=== PATIENT | female | born 1960 | race Caucasian/White ===

== ENCOUNTER 2023-03-18 05:35 | Day surgery (SDC) | payer BC ==
--- NOTE | 2023-03-17 18:08 | HP ---
HISTORY AND PHYSICAL DATE OF SURGERY: 03/18/2023. HISTORY OF PRESENT ILLNESS: Elaine Mars is a 62-year-old patient, seen with progressive right shoulder pain. We discussed options for treatment. She elected to proceed with right shoulder arthroscopy. Consent regarding procedure was obtained. PAST MEDICAL HISTORY: Gastroesophageal reflux disease, cardiovascular disease, lgx-kasdpht-lypopghar diabetes. PAST SURGICAL HISTORY: Implanted defibrillator. DAILY MEDICATIONS: 1. Atorvastatin. 2. Carvedilol. 3. Metformin. 4. Omeprazole. 5. Vitamins. ALLERGIES: Adhesive tape. SOCIAL HISTORY: She denies tobacco use. PHYSICAL EVALUATION OF THE RIGHT SHOULDER: Flexion is 120 degrees. Abduction is 100 degrees. External rotation is 30 degrees with pain and weakness. Tenderness along the anterolateral acromion and rotator cuff insertion site. Impingement is positive at 80 degrees. Cross-body adduction sign is positive. Drop-arm sign is positive. Distal neurovascular exam is intact. IMAGING STUDIES: Radiographs of the right shoulder revealed a type 2 acromion, evidence for acromioclavicular joint osteoarthritis, and cystic changes of the tuberosity. IMPRESSION: 1. Right shoulder impingement with rotator cuff tear. 2. Right shoulder acromioclavicular joint osteoarthritis. 3. Hypertension. 4. Hyperlipidemia. 5. Nha-bdybcvz-cbzbsmtqb diabetes. PLAN: Right shoulder arthroscopy with subacromial decompression, arthroscopic rotator cuff repair, Edmond procedure and debridement. MMODL / IJN: [id number] /
[~2023-03-18 05:35] MED LIST: DEXAMETHASONE SOD PHOSPHATE 4 MG/ML 1 ML VIAL IV ONE; LACTATED RINGERS 1,000 ML IV SCH; LIDOCAINE 1% (10MG/ML) FOR IV START INTRADERMA PRN; ONDANSETRON 4 MG/2 ML VIAL IVP ONE
[2023-03-18] MEDS ORDERED: ONDANSETRON 4 MG/2 ML VIAL ONE (06:10)
[2023-03-18 06:27] LABS: Glucose,Whole Blood 157 mg/dL (70-110)
[2023-03-18] MEDS ORDERED: LACTATED RINGERS 1,000 ML IV ONE ×3 (06:45→09:43)
[2023-03-18] MEDS ORDERED: HYDROmorphone 0.5 MG/0.5 ML SYRINGE IVP PRN (07:00)
[2023-03-18] MEDS ORDERED: fentaNYL (PF) 50 MCG/ML 2 ML AMP IV PRN (07:00)
[2023-03-18] MEDS ORDERED: MIDAZOLAM 2 MG/2 ML VIAL IV PRN (07:00)
[2023-03-18 07:01] LABS: African American GFR (CKD) >90 (>60 ml/min/1.73 sqM); Anion Gap 12 mmol/L; Blood Urea Nitrogen 22 mg/dL (7-17); Calcium 9.9 mg/dL (8.4-10.2); Carbon Dioxide 21 mmol/L (22-30); Chloride 105 mmol/L (98-107); Glucose 164 mg/dL (74-99); Non-African American GFR(CKD) 89 (>60 ml/min/1.73 sqM); Sodium 138 mmol/L (137-145)
[2023-03-18 07:03] LABS: Potassium 4.7 mmol/L (3.5-5.1)
[2023-03-18] MEDS ORDERED: LIDOCAINE 1% INJ 10MG/ML (20 ML MDV) ONE (07:24)
[2023-03-18] MEDS ORDERED: PHENYLEPHRINE-0.9% NACL SYG 1,000 MCG/10 ML SYRINGE ONE (07:24)
[2023-03-18] MEDS ORDERED: SUCCINYLCHOLINE CHLORIDE 200 MG/10 ML VIAL IV ONE (07:24)
[2023-03-18] MEDS ORDERED: NEOSTIGMINE 1 MG/ML 10 ML VIAL ONE (07:24)
[2023-03-18] MEDS ORDERED: ROCURONIUM 10 MG/ML (5 ML VIAL) IV ONE (07:24)
[2023-03-18] MEDS ORDERED: GLYCOPYRROLATE 0.2 MG/ML 2 ML VIAL ONE (07:24)
[2023-03-18] MEDS ORDERED: ROPIVACAINE 5 MG/ML 30 ML VIAL ONE (07:24)
[2023-03-18] MEDS ORDERED: fentaNYL (PF) 50 MCG/ML 2 ML AMP ONE (07:24)
--- NOTE | 2023-03-18 08:50 | P.OP ---
Date of Procedure: 03/18/23 Preoperative Diagnosis: Right shoulder impingement Postoperative Diagnosis: 1. Right shoulder rotator cuff tear 2. Right shoulder impingement 3. Right shoulder acromioclavicular joint osteoarthritis 4. Right shoulder partial long head biceps tendon tear Procedure(s) Performed: 1. Right shoulder arthroscopic rotator cuff repair 2. Right shoulder arthroscopic subacromial decompression 3. Right shoulder arthroscopic Edmond procedure 4. Right shoulder arthroscopic biceps tenotomy Implants: 1Arthrex 4.75 swivel lock anchor Anesthesia: GETA, regional (Interscalene block) Surgeon: Sajan Kent Speech Therapist Early Intervention #1: Guille Maloney Estimated Blood Loss (ml): 11 Pathology: none sent Condition: stable Disposition: PACU Indications for Procedure: 62-year-old patient seen with progressive right shoulder pain. After treatment options were discussed, she elected to proceed with arthroscopy. Operative Findings: See description of procedure Description of Procedure: Patient underwent an interscalene block by department of anesthesia. The patient was then taken to the operative suite. The patient underwent a general anesthetic by the department of anesthesia. The patient was placed into a lateral position and secured. There was appropriate padding of the bony prominence. Right shoulder was then prepped and draped in normal sterile orthopedic fashion. We placed the extremity in 10 pounds of longitudinal traction. A posterior incision was now made for a posterior working portal site. The trocar and cannula were inserted into the glenohumeral joint. Arthroscopy was initiated. Spinal needle was now inserted anteriorly, to ascertain the anterior working portal site. An incision was now made in that area, a trocar was inserted followed by a probe. There was some partial tearing and hyperemia of the biceps tendon present. There were grade 1 chondromalacia changes of the humeral head without significant osteochondral tears. The labrum was probed and was found to be stable. I performed an arthroscopic biceps tenotomy. I again probed the superior labrum and it was stable. Instruments were now removed from the glenohumeral joint. Utilizing the posterior working portal site, the trocar and cannula were inserted into the subacromial space. Arthroscopy initiated. I made an incision 2 fingerbreadths lateral to the acromion. I introduced my trocar followed by my ArthroCare ablator. I now began ablating thick subacromial bursal tissue, which exposed the undersurface of the anterior acromion. There was diminished subacromial space. There was a very prominent anterior acromion. A motorized bur was introduced and a subacromial decompression was performed. I also excised some osteophytes off the inferior aspect of the distal clavicle. The AC joint was visualized and noted to be fairly arthritic. The motorized bur was introduced in the anterior portal site and a Edmond procedure was performed without difficulty, decompressing the AC joint nicely. I turned my attention to the rotator cuff. There was a 1 cm tear along the distal supraspinatus tendon. I debrided the margins getting down to stable tendon tissue. The tear/defect measuring approximately 1.5 cm and was freely mobile over the footprint. I abraded the footprint with a motorized bur. With the assistance of Jorje FELDER past 3 everted mattress sutures through good bites of rotator cuff tendon. I punched hole in the footprint area for insertion of an anchor. All 6 limbs of suture were passed through the eyelet of an Arthrex 4.75 swivel lock anchor. I now placed the eyelet into the prepunched hole. I held it in position while Jorje FELDER tensioned all 6 limbs of suture and deployed the anchor with good fixation noted. All residual suture limbs were now clipped. We had good compression of the tendon along the entire footprint. Instruments now removed from the portal sites. All portal sites were approximated with nylon suture. Sterile dressings were applied followed by a shoulder sling. Guille FELDER assisted in this complex case. The patient was awakened, transferred to a bed, and taken to recovery in stable condition.
[2023-03-18 08:57] VITALS: TEMP 97
[2023-03-18 10:14] VITALS: BP 107/71; PULSE 62; RESP 16
--- NOTE | 2023-03-18 10:50 | P.ANPRN ---
Procedure Note - Anesthesia - Nerve Block Performed Right Interscalene Single Time Out Performed: Yes (645) Date of Procedure: 03/18/23 Procedure Start Time: 06:46 Procedure Stop Time: 06:50 Location of Patient: PreOp Indication: Acute Post-Operative Pain, Requested by Surgeon Sedation Type: Sedate with meaningful contact maintained Preparation: Sterile Prep Position: Supine Catheter: None Needle Types: Pajunk Needle Gauge: 21 Ultrasound used to visualize needle placement: Yes Ultrasound used to observe medication spread: Yes Injectate: 0.5% Ropivacaine (see comment for volume) (30cc) Blood Aspirated: No Pain Paresthesia on Injection Noted: No Resistance on Injection: Normal Image Stored and Saved: Yes Events: Uneventful and Well Tolerated
== END 2023-03-18 10:41 | disposition home or self-care (01) ==
LOC: OR 05:35
PROVIDERS: ATTEND Orthopaedic Surgery
DX: M75.41 Impingement syndrome of right shoulder (principal); M75.101 Unspecified rotator cuff tear or rupture of right shoulder, not specified as traumatic; M19.011 Primary osteoarthritis, right shoulder; S43.431A Superior glenoid labrum lesion of right shoulder, initial encounter; G89.18 Other acute postprocedural pain; K21.9 Gastro-esophageal reflux disease without esophagitis; I25.10 Atherosclerotic heart disease of native coronary artery without angina pectoris; E11.9 Type 2 diabetes mellitus without complications; I10 Essential (primary) hypertension; E78.5 Hyperlipidemia, unspecified; X58.XXXA Exposure to other specified factors, initial encounter
CPT/HCPCS: 64415; 80048; 29826; 29824; C1713 ×2; J2250; J0330; J1100; J2710; J0690; J2405; J2001; J3010; J2795; J2371

== ENCOUNTER 2023-08-09 06:54 | Day surgery (SDC) | payer BC ==
--- NOTE | 2023-08-08 15:52 | HP ---
HISTORY AND PHYSICAL DATE OF SURGERY: 08/09/2023. HISTORY OF PRESENT ILLNESS: Elaine Mars is a 63-year-old patient, who was seen with right shoulder adhesive capsulitis, failing conservative treatment measures. Options were discussed. She elected to proceed with right shoulder manipulation under anesthesia with steroid injection. Consent was obtained. PAST MEDICAL HISTORY: Cux-jyatpqk-hbphzmepj diabetes, gastroesophageal reflux disease, hyperlipidemia, hypertension, cardiovascular disease. PAST SURGICAL HISTORY: Shoulder arthroscopy. DAILY MEDICATIONS: 1. Atorvastatin. 2. Carvedilol. 3. Farxiga. 4. Metformin. 5. Omeprazole. ALLERGIES: None. SOCIAL HISTORY: She denies tobacco use. PHYSICAL EVALUATION OF THE RIGHT SHOULDER: She has well-healed previous arthroscopic portal sites. Flexion 70 degrees, abduction 70 degrees. External rotation is 15 degrees with reasonable strength. Her distal neurovascular exam is intact. IMAGING STUDIES: Radiographs of the right shoulder revealed a stable glenohumeral joint with a flat acromion. IMPRESSION: 1. Right shoulder adhesive capsulitis. 2. History of right shoulder arthroscopy. 3. Hypertension. 4. Hyperlipidemia. 5. Qvz-ylpdbge-qmkjtcnvk diabetes. PLAN: Manipulation under anesthesia, right shoulder with steroid injection. MMODL / IJN: [id number] /
[2023-08-09] MEDS: LACTATED RINGERS 1,000 ML IV ONE (07:27)
[2023-08-09 07:53] LABS: Glucose,Whole Blood 167 mg/dL (70-110)
[2023-08-09] MEDS: MIDAZOLAM 2 MG/2 ML VIAL IVP ONE (07:59)
[2023-08-09] MEDS ORDERED: ONDANSETRON 4 MG/2 ML VIAL IVP ONE (08:06)
[2023-08-09] MEDS ORDERED: LACTATED RINGERS 1,000 ML IV SCH (08:06)
[2023-08-09] MEDS ORDERED: LIDOCAINE 1% (10MG/ML) FOR IV START INTRADERMA PRN (08:06)
[2023-08-09] MEDS ORDERED: MIDAZOLAM 2 MG/2 ML VIAL IV PRN (08:06)
[2023-08-09] MEDS ORDERED: DEXAMETHASONE SOD PHOSPHATE 4 MG/ML 1 ML VIAL IV ONE (08:06)
[2023-08-09] MEDS ORDERED: HYDROmorphone 0.5 MG/0.5 ML SYRINGE IVP PRN (08:06)
[2023-08-09] MEDS ORDERED: LIDOCAINE 1% INJ 10MG/ML (20 ML MDV) ONE (08:30)
[2023-08-09] MEDS ORDERED: PROPOFOL 10 MG/ML 20 ML VIAL IV ONE (08:30)
[2023-08-09] MEDS ORDERED: MIDAZOLAM 2 MG/2 ML VIAL ONE (08:30)
[2023-08-09] MEDS ORDERED: fentaNYL (PF) 50 MCG/ML 2 ML AMP ONE (08:30)
[2023-08-09] MEDS: methylPREDNISolone ACETATE 80 MG/ML 1 ML VIAL IM ONE ×2 (08:38→08:40)
[2023-08-09] MEDS: BUPIVACAINE-EPI 0.5%-1:200,000 10 ML VIAL INTRAARTIC ONE ×2 (08:38→08:40)
--- NOTE | 2023-08-09 08:44 | P.OP ---
Date of Procedure: 08/09/23 Preoperative Diagnosis: Right shoulder adhesive capsulitis Postoperative Diagnosis: Right shoulder adhesive capsulitis Procedure(s) Performed: Manipulation under anesthesia right shoulder with steroid injection Anesthesia: MAC, local Surgeon: Sajan Kent Estimated Blood Loss (ml): 0 Pathology: none sent Condition: stable Disposition: PACU Indications for Procedure: 63-year-old patient seen with persistent right shoulder adhesive capsulitis. After having treatment options discussed, she elected to proceed with manipulation under anesthesia with steroid injection. Operative Findings: See description of procedure Description of Procedure: Patient was taken to a monitored anesthesia area. She received IV sedation by the department of anesthesia. When sufficient anesthesia was noted I performed a manipulation of the right shoulder achieving near full range of motion with audible tearing of the adhesions. The anterior aspect of the shoulder was prepped and draped in normal sterile orthopedic fashion. I injected a solution of 1 cc Depo-Medrol and 2 cc of 4% plain Marcaine intra-articular right shoulder glenohumeral joint under sterile technique. I now applied a sterile Band-Aid. I now took the shoulder through range of motion again. The patient was then awakened having tolerated the procedure well.
[2023-08-09] MEDS: KETOROLAC 15 MG/ML 1 ML VIAL IVP ONE (09:22)
[2023-08-09 09:25] VITALS: TEMP 97.2
[2023-08-09] MEDS: HYDROcodone/APAP 5-325MG 1 EACH TAB ONE (09:39)
[2023-08-09 10:28] LABS: Glucose,Whole Blood 218 mg/dL (70-110)
[2023-08-09 10:36] VITALS: BP 128/78; PULSE 65; RESP 14
== END 2023-08-09 10:36 | disposition home or self-care (01) ==
LOC: OR 06:54
PROVIDERS: ATTEND Orthopaedic Surgery
DX: M75.01 Adhesive capsulitis of right shoulder (principal); E11.9 Type 2 diabetes mellitus without complications; E78.5 Hyperlipidemia, unspecified; I11.0 Hypertensive heart disease with heart failure; I50.9 Heart failure, unspecified; M19.90 Unspecified osteoarthritis, unspecified site; K21.9 Gastro-esophageal reflux disease without esophagitis; Z79.84 Long term (current) use of oral hypoglycemic drugs; Z79.899 Other long term (current) drug therapy; Z98.890 Other specified postprocedural states
CPT/HCPCS: 23700; J2250; J1040; J2001; J3010; J1885; J2704

== ENCOUNTER 2024-03-08 06:26 | Day surgery (SDC) | payer BC ==
[2024-03-07 10:09] VITALS: BMI 29.5
[~2024-03-08 06:26] MED LIST changes: -DEXAMETHASONE SOD PHOSPHATE 4 MG/ML 1 ML VIAL IV ONE; -LACTATED RINGERS 1,000 ML IV SCH; -ONDANSETRON 4 MG/2 ML VIAL IVP ONE
[2024-03-08 07:19] LABS: Glucose,Whole Blood 150 mg/dL (70-110)
[2024-03-08 07:27] VITALS: TEMP 97
[2024-03-08] MEDS: LACTATED RINGERS 1,000 ML IV SCH (07:28)
[2024-03-08] MEDS: IV FLUID CONTINUATION 1,000 ML IV ONE ×2 (07:29→08:07)
[2024-03-08] MEDS ORDERED: ETOMIDATE 2 MG/ML 10 ML VIAL ONE (08:13)
[2024-03-08] MEDS ORDERED: LIDOCAINE 1% INJ 10MG/ML (20 ML MDV) ONE (08:13)
--- NOTE | 2024-03-08 08:28 | P.PCN ---
Date of Procedure: 03/08/24 Procedure(s) Performed: BRIEF HISTORY: Patient is a 63-year-old pleasant white female scheduled for an elective colonoscopy as a part of screening for colon cancer. PROCEDURE PERFORMED: Colonoscopy. PREOPERATIVE DIAGNOSIS: Screening for colon cancer. IV sedation per Anesthesia. PROCEDURE: After informed consent was obtained, the patient, was brought into the endoscopy unit. IV sedation was administered by Anesthesia under continuous monitoring. Digital rectal examination was normal. Initially the Olympus CF-160 flexible video colonoscope was then inserted in the rectum, gradually advanced into the cecum without any difficulty. Careful examination was performed as the scope was gradually being withdrawn. Ileocecal valve and the appendiceal orifice were visualized and appeared normal. Prep was excellent. Mucosa of the cecum, ascending colon, transverse colon, descending colon, sigmoid colon, and rectum appeared normal. Retroflexion was performed in the rectum and no lesions were seen. The patient tolerated the procedure well. IMPRESSION: Normal-appearing colon from rectum to cecum with no evidence of colorectal neoplasia. RECOMMENDATIONS: Findings of this examination were discussed with the patient as well as her family. Was advised to have repeat screening colonoscopy in 10 years..
[2024-03-08 08:34] VITALS: PULSE 59; RESP 14
[2024-03-08 08:58] VITALS: BP 97/52
== END 2024-03-08 09:27 | disposition home or self-care (01) ==
LOC: ORWHC2ENDO 06:26
PROVIDERS: ATTEND Internal Medicine Gastroenterology
DX: Z12.11 Encounter for screening for malignant neoplasm of colon
CPT/HCPCS: 45378

== ENCOUNTER 2024-06-05 14:56 | Day surgery (SDC) | payer BC ==
[~2024-06-05 14:56] MED LIST changes: -LIDOCAINE 1% (10MG/ML) FOR IV START INTRADERMA PRN; +SODIUM CHLORIDE 0.9% 1,000 ML IV SCH
[2024-06-05] MEDS: SODIUM CHLORIDE 0.9% 1,000 ML IV SCH (16:45)
[2024-06-05] MEDS: IV FLUID CONTINUATION 1,000 ML IV ONE (16:45)
[2024-06-05 16:53] LABS: Glucose,Whole Blood 98 mg/dL (70-110)
[2024-06-05 17:08] LABS: Basophils % (A) 0 %; Eosinophils # (A) 0.2 k/uL (0-0.7); Eosinophils % (A) 2 %; HCT 43.7 % (34.0-46.0); HGB 14.7 gm/dL (11.4-16.0); Lymphocytes # (A) 2.5 k/uL (1.0-4.8); Lymphocytes % (A) 31 %; MCH 29.1 pg (25.0-35.0); MCHC 33.7 g/dL (31.0-37.0); MCV 86.4 fL (80.0-100.0); Mean Platelet Volume 8.1; Monocytes # (A) 0.5 k/uL (0-1.0); Monocytes % (A) 6 %; Neutrophils # (A) 4.7 k/uL (1.3-7.7); Neutrophils % (A) 59 %; Platelet Count 235 k/uL (150-450); RBC 5.05 m/uL (3.80-5.40)
[2024-06-05] MEDS ORDERED: PROPOFOL 10 MG/ML 20 ML VIAL IV ONE (18:03)
[2024-06-05] MEDS ORDERED: MIDAZOLAM 2 MG/2 ML VIAL ONE (18:03)
[2024-06-05] MEDS ORDERED: fentaNYL (PF) 50 MCG/ML 2 ML AMP ONE (18:03)
[2024-06-05] MEDS ORDERED: PHENYLEPHRINE-0.9% NACL SYG 1,000 MCG/10 ML SYRINGE ONE (18:03)
[2024-06-05 18:27] LABS: African American GFR (CKD) 84 (>60 ml/min/1.73 sqM); Anion Gap 14 mmol/L; Blood Urea Nitrogen 16 mg/dL (7-17); Calcium 9.7 mg/dL (8.4-10.2); Carbon Dioxide 23 mmol/L (22-30); Chloride 105 mmol/L (98-107); Glucose 93 mg/dL (74-99); Non-African American GFR(CKD) 73 (>60 ml/min/1.73 sqM); Potassium 4.1 mmol/L (3.5-5.1); Sodium 142 mmol/L (137-145)
[2024-06-05] MEDS: ceFAZolin 1 GM in SODIUM CHLORIDE 0.9% IRRIG BTL 250 ML IRRIGATION PRN (18:41)
[2024-06-05] MEDS: ROPIVACAINE 5 MG/ML 30 ML VIAL MISCELLANE ONE (18:45)
[2024-06-05] MEDS: LIDOCAINE 1% INJ 10MG/ML (20 ML MDV) SQ ONE (18:45)
--- NOTE | 2024-06-05 19:31 | P.EPPROC ---
- EP Procedure Note Electrophysiology Procedure Note: Diagnosis Cardiomyopathy, chronic, nonischemic Congestive heart failure, systolic, class II Left ventricular ejection fraction 45% On guideline directed medical treatment guideline directed Single-chamber ICD generator with premature battery depletion, on advisory Procedure: Single ICD generator change for management of risk of sudden cardiac /premature battery depletion, generator on advisory, [place] Defibrillation level testing Cinefluoroscopy of the lead Marine Resource Economist: Dr. Byrd Result: Single chamber ICD generator change RV ICD lead: Chronic lead, pacing threshold 1 V at 0.5 ms, R waves 11.5 mV and pacing impedance 510 ohms ICD generator: New generator Clyman VR single-chamber ICD, [place] Procedure details: Patient was brought to the EP lab in a fasting state. Written informed consent was obtained prior to the procedure. Options, pros and cons, benefits and risks and complications discussed with patient in detail prior to the procedure (shared decision making document, from [facility]). Importance of continuing medical treatment emphasized. Alternatives discussed. Patient would like to proceed with ICD implant. Cinefluoroscopy of the leads was performed. Single coil ICD lead in RV apex. No fractures or breaks noted The left pectoral area was prepped and draped as a protocol. IV antibiotics administered 1% lidocaine was used for local anesthesia. A 4 cm incision was made parallel to the deltopectoral groove, about 1.5 cm medial to it. The incision was carried down to the level of the pectoralis muscle and the subfascial pocket was accessed. Hemostasis was assured. Partial capsulectomy performed Chronic generator explanted. New generator implanted after washing the pocket Device secured to the underlying pectoralis muscle. Pocket irrigated with antibiotic solution. Antibiotic pouch placed Leads connected to the ICD generator. Wound closed in 3 layers and dressed per protocol ICD was interrogated and programmed. Defibrillation level testing performed VF induced and successfully detected and successfully internally defibrillated with a 10 J shock High-voltage impedance 67 ohms Charge time 1.6 seconds Appropriate pacing parameters, antitachycardia therapies with antitachycardia pacing cardioversion defibrillations programmed. Patient tolerated the procedure well without any acute complications. See scanned device report in EMR for lead details
[2024-06-05] MEDS: ACETAMINOPHEN IV (For NPO) 1,000 MG in EMPTY BAG 1 BAG IVPB ONE (20:00)
[2024-06-05 22:32] VITALS: RESP 16
[2024-06-06] MEDS: ACETAMINOPHEN TAB 325 MG TAB PO PRN (06:33)
[2024-06-06 07:53] VITALS: BP 106/67; PULSE 62; TEMP 97.8
[2024-06-06] MEDS: SPIRONOLACTONE 25 MG TAB PO SCH (09:28)
[2024-06-06] MEDS: carvediloL 12.5 MG TAB PO SCH (09:28)
[2024-06-06] MEDS: SACUBITRIL/VALSARTAN 97 MG-103 MG TABLET PO SCH (09:28)
[2024-06-06] MEDS: LINAGLIPTIN 5 MG TABLET PO SCH (09:29)
[2024-06-06] MEDS: DAPAGLIFLOZIN PROPANEDIOL 10 MG TABLET PO SCH (09:29)
[2024-06-06] MEDS: PANTOPRAZOLE 40 MG TABLET PO SCH (09:34)
[2024-06-06] MEDS: ZINC SULFATE 220 MG CAP PO SCH (09:34)
--- NOTE | 2024-06-06 16:08 | P.DS ---
Providers Attending physician: Mayco Byrd [facility] Course: Mrs. Justin is doing well. Minimal's soakage, no swelling over the ICD generator site Heart sounds are normal Breath sounds are clear She is lying comfortably in bed No chest discomfort dizziness or lightheadedness Impression Single-chamber ICD at premature battery depletion, device on advisory New [place]/Montoya single-chamber ICD implanted at this generator change Single coil ICD lead functioning normally DFT at or below 10 J Past history of ICD shocks Plan Continue medical treatment with carvedilol spironolactone Entresto Corlanor and Farxiga Follow-up with Dr. Rose Plan - Discharge Summary Discharge Rx Participant: No New Discharge Prescriptions: Continue Spironolactone [Aldactone] 37.5 mg PO QAM Atorvastatin [Lipitor] 40 mg PO HS carvediloL [Coreg] 25 mg PO BID Cholecalciferol [Vitamin D3 (25 Mcg = 1000 Iu)] 1,000 unit PO DAILY Sacubitril/Valsartan [Entresto 97 mg-103 mg Tablet] 1 each PO BID Ivabradine HCl [Corlanor] 2.5 mg PO BID Ascorbic Acid [Vitamin C] 500 mg PO DAILY Magnesium (Unknown Dose) 1 tab PO DAILY Cyanocobalamin (Vitamin B-12) [Vitamin B-12] 1,000 mcg PO DAILY Tirzepatide [Mounjaro] 5 mg SQ MO Omeprazole 20 mg PO QAM metFORMIN HCL 1,000 mg PO HS sitaGLIPtin [Januvia] 100 mg PO DAILY Dapagliflozin Propanediol [Farxiga] 10 mg PO DAILY Zinc Gluconate [Zinc] 50 mg PO DAILY Discharge Medication List Atorvastatin [Lipitor] 40 mg PO HS 03/01/15 [History] Spironolactone [Aldactone] 37.5 mg PO QAM 03/01/15 [History] carvediloL [Coreg] 25 mg PO BID 03/01/15 [History] Cholecalciferol [Vitamin D3 (25 Mcg = 1000 Iu)] 1,000 unit PO DAILY 08/13/15 [History] Dapagliflozin Propanediol [Farxiga] 10 mg PO DAILY 03/15/23 [History] Ivabradine HCl [Corlanor] 2.5 mg PO BID 03/15/23 [History] Omeprazole 20 mg PO QAM 03/15/23 [History] Sacubitril/Valsartan [Entresto 97 mg-103 mg Tablet] 1 each PO BID 03/15/23 [History] metFORMIN HCL 1,000 mg PO HS 03/15/23 [History] sitaGLIPtin [Januvia] 100 mg PO DAILY 03/15/23 [History] Ascorbic Acid [Vitamin C] 500 mg PO DAILY 03/07/24 [History] Cyanocobalamin (Vitamin B-12) [Vitamin B-12] 1,000 mcg PO DAILY 03/07/24 [History] Magnesium (Unknown Dose) 1 tab PO DAILY 03/07/24 [History] Tirzepatide [Mounjaro] 5 mg SQ MO 03/07/24 [History] Zinc Gluconate [Zinc] 50 mg PO DAILY 03/07/24 [History] Follow up Appointment(s)/Referral(s): Joo Rose MD [STAFF PHYSICIAN] - 06/12/24 4:00 pm (device check) Patient Instructions/Handouts: Pacemaker Generator Change (DC), Pacemaker Generator Change (GEN) Activity/Diet/Wound Care/Special Instructions: PATIENT EDUCATION MATERIAL Instructions following a heart rhythm device implant. 1. Keep dressing DRY for 5 DAYS. You may cover the area with Saran or Cling Wrap, prior to a shower. 2. The dressing will be removed in the Device Clinic at [facility]. Absorbable sutures were used to close the wound. 3. Avoid raising the left arm above the shoulder level. 4 week restriction 4. Avoid arm movements, like backscratching, rubbing the head, or pulling on a cord. 4 weeks restriction 5. Gentle range of motion movements of the shoulder, closest to the incision should be performed to avoid a frozen shoulder. (Pendulum exercises of the shoulder) 6. The opposite arm may be used freely. 7. Avoid driving for 7 days. 8. Avoid activities such as golfing, swimming, weed whacking, lifting more than 10 pounds weight, bowling, gymnastics and weight training/lifting. (6 weeks restriction) 9. Activities such as wood chopping with an axe, pull-ups in the gymnasium, power lifting, arc-welding, being close to home induction cooktops will always be a problem. 10. Arm sling is only a reminder not to raise the arm above the head. You do not need to keep the arm completely immobilized. Your free to move the arm and use it and for normal activities. In case of any problems, please call [facility], [place], @ [phone], Attention: Device Clinic Device clinic follow-up in 5 days Follow-up with primary spray i painter in 2-3 months Discharge Disposition: HOME SELF-CARE
[2024-06-06] MEDS ORDERED: ATORVASTATIN 40 MG TAB PO SCH (21:00)
[2024-06-06] MEDS ORDERED: metFORMIN 500 MG TAB PO SCH (21:00)
== END 2024-06-06 11:20 | disposition home or self-care (01) ==
LOC: CATHEP 14:56 → 6NMEDSUR 19:20 → CATHEP 06-06 11:20
PROVIDERS: ATTEND Internal Medicine Clinical Cardiac Electrophysiology
DX: Z45.02 Encounter for adjustment and management of automatic implantable cardiac defibrillator (principal); I11.0 Hypertensive heart disease with heart failure; I50.20 Unspecified systolic (congestive) heart failure; I42.8 Other cardiomyopathies; E78.5 Hyperlipidemia, unspecified; E11.9 Type 2 diabetes mellitus without complications; L23.1 Allergic contact dermatitis due to adhesives; G47.30 Sleep apnea, unspecified; Z79.02 Long term (current) use of antithrombotics/antiplatelets; Z79.899 Other long term (current) drug therapy
CPT/HCPCS: 93641; 33262; 80048; 85025; C1722; J2250; J0690 ×2; J2003; J3010; J2795; J0131; J2704; J2371